=== PATIENT | female | born 1945 | race Caucasian/White ===

== ENCOUNTER 2023-11-03 12:58 | Emergency (ER) | payer MEDICARE, MEDICAID ==
[~2023-11-03] VITALS: Ht 160 cm; Wt 72.7 kg
[2023-11-03 13:08] VITALS: BP 135/91; TEMP 96.9; O2SAT 96
== END 2023-11-03 14:25 | disposition left against medical advice (07) ==
LOC: M ED 12:58 → EDBD 12:58 → M ED 14:25
DX: Z53.21 Procedure and treatment not carried out due to patient leaving prior to being seen by health care provider (principal)